=== PATIENT | male | born 1975 | race Caucasian/White ===

== ENCOUNTER 2021-05-27 14:04 | Emergency (ER) | payer OTHER ==
[2021-05-27 15:53] LABS: HEMOGLOBIN 17.4 gm/dl (14.0-17.5); RED BLOOD COUNT 5.61 M/UL (4.20-5.50); WHITE BLOOD COUNT 5.4 K/UL (4.5-11.0)
[2021-05-27 16:26] LABS: BUN/CREATININE RATIO 19 (0-10)
[2021-05-27] MEDS ORDERED: CLINDAMYCIN PHO40 GM TOP (18:15)
[2021-05-27] MEDS ORDERED: IBUPROFEN600 MG PO (18:15)
[2021-05-27] MEDS ORDERED: CLEOCIN HCL300 MG PO (18:15)
== END 2021-05-27 18:22 | disposition home or self-care (01) ==
LOC: ER1 14:04
PROVIDERS: Physician Assistant Medical
DX: R07.9 Chest pain, unspecified (principal); L73.2 Hidradenitis suppurativa; I10 Essential (primary) hypertension; Z86.19 Personal history of other infectious and parasitic diseases; Z79.899 Other long term (current) drug therapy; F17.210 Nicotine dependence, cigarettes, uncomplicated; Z20.822 Contact with and (suspected) exposure to COVID-19
CPT/HCPCS: 71045; 80053; 82550; 82553; 83874; 84484; 85025; 85379; 93005; 99285; Q9967; U0002

== ENCOUNTER 2022-04-01 01:40 | Emergency (ER) | payer OTHER ==
[~2022-04-01 01:40] MED LIST: CLEOCIN HCL300 MG PO; CLINDAMYCIN PHO40 GM TOP; IBUPROFEN600 MG PO
[2022-04-01] MEDS ORDERED: BACTRIM DS TAB1 EACH PO (03:32)
[2022-04-01] MEDS ORDERED: CEPHALEXIN500 M1 PO (03:32)
== END 2022-04-01 03:40 | disposition home or self-care (01) ==
LOC: ER1 01:40
DX: L02.611 Cutaneous abscess of right foot (principal); F17.210 Nicotine dependence, cigarettes, uncomplicated
CPT/HCPCS: 10060; 73630; 99283